=== PATIENT | male | born 1950 | race Caucasian/White ===

== ENCOUNTER 2017-09-01 05:36 | Day surgery (SDC) | payer BC ==
[2017-09-01] VITALS (10 sets, daily range): BP systolic 111–149; BP diastolic 53–88; PULSE 78–88; TEMP 97.5–98.2
[~2017-09-01] VITALS: Ht 185.4 cm; Wt 121.5 kg
[2017-09-01] MEDS ORDERED: PROSCAR 5MG5 MG PO (06:09)
[2017-09-01] MEDS ORDERED: SEPTRA DS 8001 TAB PO (06:10)
[2017-09-01] MEDS ORDERED: NEURONTIN300 MG/CAP PO (06:10)
[2017-09-01] MEDS ORDERED: GILOTRIF PO (06:11)
[2017-09-01] MEDS ORDERED: CIPRO 500MG TA500 MG PO (12:41)
== END 2017-09-01 13:30 | disposition home or self-care (01) ==
LOC: SDCO 05:36
DX: N30.21 Other chronic cystitis with hematuria (principal); K21.9 Gastro-esophageal reflux disease without esophagitis; M19.90 Unspecified osteoarthritis, unspecified site; Z88.5 Allergy status to narcotic agent; Z96.651 Presence of right artificial knee joint; Z90.2 Acquired absence of lung [part of]; Z85.118 Personal history of other malignant neoplasm of bronchus and lung; Z87.891 Personal history of nicotine dependence; Z83.3 Family history of diabetes mellitus; Z84.1 Family history of disorders of kidney and ureter
CPT/HCPCS: J0690; J1100; J1170; J2405; J2704; J3010; J7120; Q9967